=== PATIENT | female | born 1975 | race Caucasian/White ===

== ENCOUNTER → 2023-11-13 07:32 | Outpatient (REF) | payer BC, SELFPAY ==
[2023-11-13 09:44] LABS: % Basophils 1.1 % (0-2); % Eosinophils 4.7 % (0-6); % Immature Granulocytes 0.4 % (0-0.5); % Lymphocytes 28.5 % (20.5-51.1); % Monocytes 6.8 % (1.7-9.3); % Neutrophils 58.5 % (42.2-75.2); Absolute Basophils 0.1 10^3/uL (0-0.2); Absolute Eosinophils 0.3 10^3/uL (0-0.7); Absolute Lymphocytes 1.5 10^3/uL (1.2-3.4); Absolute Monocytes 0.4 10^3/uL (0.1-0.6); Absolute Neutrophils 3.1 10^3/uL (1.4-6.5); Hematocrit 33.9 % (37.0-47.0); Hemoglobin 10.5 g/dL (12.0-16.0); Mean Corpuscular Hgb 24.5 pg (27.0-31.0); Mean Platelet Volume 9.1 fL (7.4-10.4); Nucleated Red Blood Cells % 0 %; Platelet Count 371 10^3/uL (130-400); Red Blood Cell Count 4.29 10^6/uL (4.20-5.40); Red Cell Dist. Width 16.4 % (11.5-14.5); White Blood Cell Count 5.3 10^3/uL (4.8-10.8)
[2023-11-13 09:45] LABS: Urine Albumin Negative (Neg - Trace); Urine Bilirubin Negative (Negative); Urine Character Clear (Clear); Urine Color Straw; Urine Glucose Negative (Negative); Urine Ketone Negative (Negative); Urine Leukocyte Negative (Negative); Urine Nitrite Negative (Negative); Urine Occult Blood Negative (Negative); Urine Specific Gravity 1.005 (<1.030); Urine Urobilinogen Negative (Neg - 1+)
[2023-11-13 10:23] LABS: ALT (SGPT) 19 U/L (0-35); AST (SGOT) 27 U/L (14-36); Albumin 4.5 g/dl (3.5-5.0); Alkaline Phosphatase 80 U/L (38-126); Blood Urea Nitrogen 12 mg/dl (7-17); Calcium 9.4 mg/dl (8.4-10.2); Carbon Dioxide 24 mmol/L (22-30); Chloride 102 mmol/L (98-107); Glucose 102 mg/dl (70-99); HDL Cholesterol 74 mg/dl; LDL Cholesterol, Calculated 85 mg/dl; Potassium 4.5 mmol/L (3.5-5.1); Sodium 136 mmol/L (135-145); Total Bilirubin 1.2 mg/dl (0.2-1.3); Total Cholesterol 173 mg/dl (50-199); Total Protein 6.8 g/dl (6.3-8.2); Triglyceride 72 mg/dl (10-149); Very Low Density Lipoprotein 14 mg/dl (0-30); eGFR > 60.00
[2023-11-13 10:27] LABS: Vitamin D, 25-OH*** 48.2 ng/mL (30-80)
== END ==
LOC: REG 07:32
PROVIDERS: ATTENDING PHYSICIAN Obstetrics & Gynecology; FAMILY PHYSICIAN Internal Medicine
DX: Z12.31 Encounter for screening mammogram for malignant neoplasm of breast (principal); Z00.00 Encounter for general adult medical examination without abnormal findings; E55.9 Vitamin D deficiency, unspecified; Z13.220 Encounter for screening for lipoid disorders
CPT/HCPCS: 36415; 77063; 77067; 80053; 80061; 81003; 82306; 85025

== ENCOUNTER → 2023-11-20 08:37 | Outpatient (REF) | payer BC, SELFPAY | LOC: WDC 08:37 | PROVIDERS: ATTENDING PHYSICIAN Obstetrics & Gynecology; FAMILY PHYSICIAN Internal Medicine | DX: R92.8 Other abnormal and inconclusive findings on diagnostic imaging of breast (principal) | CPT/HCPCS: 76642 ==

== ENCOUNTER → 2024-04-08 13:55 | Outpatient (REF) | payer BC, SELFPAY ==
[2024-04-08 15:12] LABS: Urine Albumin Negative (Neg - Trace); Urine Bilirubin Negative (Negative); Urine Character Clear (Clear); Urine Color Yellow; Urine Glucose Negative (Negative); Urine Ketone Negative (Negative); Urine Leukocyte 2+ (Negative); Urine Nitrite Negative (Negative); Urine Occult Blood 2+ (Negative); Urine Specific Gravity 1.005 (<1.030); Urine Urobilinogen Negative (Neg - 1+)
[2024-04-08 15:26] LABS: Urine Bacteria Many (Negative); Urine White Cell 50-60 /HPF (0-5)
== END ==
LOC: REG 13:55
PROVIDERS: ATTENDING PHYSICIAN Internal Medicine
DX: R35.0 Frequency of micturition (principal)
CPT/HCPCS: 81003; 81015; 87077; 87086; 87186

== ENCOUNTER → 2024-10-11 15:14 | Outpatient (REF) | payer BC, SELFPAY | LOC: CPAP 15:14 | PROVIDERS: ATTENDING PHYSICIAN Obstetrics & Gynecology | DX: Z01.419 Encounter for gynecological examination (general) (routine) without abnormal findings (principal); Z11.51 Encounter for screening for human papillomavirus (HPV) | CPT/HCPCS: 87624 ==

== ENCOUNTER → 2024-11-12 07:22 | Outpatient (REF) | payer BC, SELFPAY ==
[2024-11-12 08:08] LABS: Hematocrit 41.4 % (37.0-47.0); Hemoglobin 13.7 g/dL (12.0-16.0); Mean Corp Hgb Conc. 33.1 g/dL (33.0-37.0); Mean Corpuscular Volume 92.4 fL (81.0-99.0); Nucleated Red Blood Cells % 0 %; Platelet Count 311 10^3/uL (130-400); Red Cell Dist. Width 12.3 % (11.5-14.5)
[2024-11-12 08:45] LABS: ALT (SGPT) 23 U/L (0-35); AST (SGOT) 26 U/L (14-36); Albumin 4.7 g/dl (3.5-5.0); Alkaline Phosphatase 76 U/L (38-126); Blood Urea Nitrogen 16 mg/dl (7-17); Calcium 9.0 mg/dl (8.4-10.2); Carbon Dioxide 26 mmol/L (22-30); Chloride 106 mmol/L (98-107); Glucose 86 mg/dl (70-99); HDL Cholesterol 57 mg/dl; LDL Cholesterol, Calculated 114 mg/dl; Potassium 4.2 mmol/L (3.5-5.1); Sodium 138 mmol/L (135-145); Total Protein 7.0 g/dl (6.3-8.2); Very Low Density Lipoprotein 10 mg/dl (0-30); eGFR > 60.00
[2024-11-12 08:54] LABS: Vitamin D, 25-OH*** 43.9 ng/mL (30-80)
[2024-11-12 08:58] LABS: Urine Character Clear (Clear)
[2024-11-12 09:07] LABS: TSH 2.18 uIU/ml (0.47-4.68)
[2024-11-12 09:48] LABS: Urine Squamous Cell 16-20 /LPF (Few); Urine White Cell 0-2 /HPF (0-5)
== END ==
LOC: REG 07:22
PROVIDERS: ATTENDING PHYSICIAN Internal Medicine
DX: Z79.899 Other long term (current) drug therapy (principal); Z00.00 Encounter for general adult medical examination without abnormal findings; Z13.220 Encounter for screening for lipoid disorders
CPT/HCPCS: 36415; 80053; 80061; 81003; 81015; 82306; 84439; 84443; 85025

== ENCOUNTER → 2024-11-13 07:33 | Outpatient (REF) | payer BC, SELFPAY | LOC: WDC 07:33 | PROVIDERS: ATTENDING PHYSICIAN Obstetrics & Gynecology; FAMILY PHYSICIAN Internal Medicine | DX: Z12.31 Encounter for screening mammogram for malignant neoplasm of breast (principal) | CPT/HCPCS: 77063; 77067 ==

== ENCOUNTER → 2024-11-19 13:47 | Outpatient (REF) | payer BC, SELFPAY | LOC: WDC 13:47 | PROVIDERS: ATTENDING PHYSICIAN Obstetrics & Gynecology; FAMILY PHYSICIAN Internal Medicine | DX: R92.2 Inconclusive mammogram (principal) | CPT/HCPCS: 76641 ==

== ENCOUNTER → 2025-02-05 10:35 | Outpatient (REF) | payer BC, SELFPAY ==
[2025-02-05 18:00] LABS: Urine Character Clear (Clear)
[2025-02-05 18:09] LABS: Urine White Cell 70-80 /HPF (0-5)
== END ==
LOC: CLAB 10:35
PROVIDERS: ATTENDING PHYSICIAN Nurse Practitioner Adult Health
DX: N39.0 Urinary tract infection, site not specified (principal)
CPT/HCPCS: 81003; 81015; 87086